=== PATIENT | female | born 1960 | race Hispanic/Latino ===

== ENCOUNTER 2018-04-18 00:46 | Inpatient (IN) | payer MEDICAID ==
--- NOTE | 2018-04-18 01:10 | C.PDOC ---
History Of Present Illness patient was medically cleared at [facility] and accepted in transfer to our psychiatric facility by dr Juarez Time Seen by Provider: 04/18/18 01:10 Chief Complaint (Nursing): Psychiatric Evaluation History Per: Patient History/Exam Limitations: no limitations Onset/Duration Of Symptoms: Days Current Symptoms Are (Timing): Still Present Suicide/Self Injury Attempted (Context): None Modifying Factor(s): Alcohol Severity: Mild Pain Scale Rating Of: 2 Associated Symptoms: Depression Involuntary Hold By: None Recent travel outside of the [place]: No Additional History Per: Other (hospital) Past Medical History Reviewed: Historical Data, Nursing Documentation, Vital Signs Vital Signs: Last Vital Signs Temp 97 F L 04/18/18 00:58 Pulse 61 04/18/18 00:58 Resp 16 04/18/18 00:58 BP 155/93 H 04/18/18 00:58 Pulse Ox 98 04/18/18 01:10 - Medical History PMH: COPD, Emphysema Surgical History: Cholecystectomy Family History: States: No Known Family Hx - Social History Hx Alcohol Use: Yes Hx Substance Use: No - Immunization History Hx Tetanus Toxoid Vaccination: Yes Hx Influenza Vaccination: Yes Hx Pneumococcal Vaccination: Yes Review Of Systems Constitutional: Negative for: Fever, Chills Cardiovascular: Negative for: Chest Pain Respiratory: Negative for: Shortness of Breath Gastrointestinal: Negative for: Abdominal Pain Musculoskeletal: Negative for: Back Pain Skin: Negative for: Rash Neurological: Negative for: Weakness Psych: Positive for: Depression. Negative for: Suicidal ideation Physical Exam - Physical Exam Appears: Non-toxic, No Acute Distress Skin: Warm, Dry Chest: Symmetrical Cardiovascular: Rhythm Regular Respiratory: No Rales, No Rhonchi, No Wheezing Gastrointestinal/Abdominal: Soft, No Tenderness Extremity: Normal ROM Extremity: Bilateral: Atraumatic Neurological/Psych: Oriented x3 Gait: Steady ED Course And Treatment O2 Sat by Pulse Oximetry: 98 Pulse Ox Interpretation: Normal Disposition Counseled Patient/Family Regarding: Studies Performed, Diagnosis - Disposition Disposition: HOSPITALIZED Disposition Time: 01:10 Condition: FAIR Forms: [facility] ([place]) - POA Present On Arrival: None - Clinical Impression Clinical Impression: Major depressive disorder, recurrent, unspecified, Alcohol abuse Decision To Admit - Pt Status Changed To: Hospital Disposition Of: Inpatient - Admit Certification Admit to Inpatient:: After my assessment, the patient will require hospitalization for at least two midnights. This is because of the severity of symptoms shown, intensity of services needed, and/or the medical risk in this patient being treated as an outpatient. - InPatient: Physician Admission Certification: I certify that this patient requires 2 or more midnights of care for the following reason:: After my assessment, the patient will require hospitalization for at least two midnights. This is because of the severity of symptoms shown, intensity of services needed, and/or the medical risk in this patient being treated as an outpatient. - . Bed Request Type: Psychiatry Admitting Physician: Mikey Juarez Patient Diagnosis: Major depressive disorder, recurrent, unspecified, Alcohol abuse
--- NOTE | 2018-04-18 01:45 | PCM.BM ---
Treatment Plan Problems - Problems identified on initial assessmt Depression Date Initiated: 04/18/18 Time Initiated: 01:42 Date resolved: 04/18/18 Assessment reference: NA substace abuse Date Initiated: 04/18/18 Time Initiated: :46 Date resolved: 04/18/18 Assessment reference: NA Status: Active Treatment assets and liabiliti Patient Assests: cooperative Patient Liabilities: substance abuse, medical problems (COPD, ) - Milieu Protocol Maintain good personal hygiene: daily Encourage regular showers, daily Assist patient to perform ADL's, every shift Remind patient to perform daily oral care Maintain personal safety: every shift Educate patient to report safety concerns to staff, every shift Monitor environment for contraband/sharps Medication safety: Monitor for expected outcome, potential side effects: every shift, Assess barriers to learning: every shift, Assess readiness for medication education: every shift
[2018-04-18 01:51] VITALS: O2SAT 97
--- NOTE | 2018-04-18 10:55 | PCM.PSYCH ---
Initial Psychiatric Evaluation - Initial Psychiatric Evaluation Type of Admission: Voluntary Legal Status: Capacity Chief Complaint (in patient's own words): "I dont want to drink alcohol again" History of Present Illness and Precipitating Events: Pt is a 57 y/o F who is currently living in her car with her boyfriend. pt has 3 children whom she has no contact with. pt is and currently on medical leave from [facility]. Pt presents due to alcohol intoxication, depression and suicidal ideation. Pt states that she drank alcohol yesterday and "blacked out" and woke up in the hospital. pt was outside the liquor store when this occurred. pt states she drank vodka but does not remember how much she drank. pt has been sober for 10 years after going to rehab and relapsed 3-4 month ago because of "personal problems". pt was sleeping in the room and irritated with questioning. Pt confirms depressed mood with anhedonia, "hard to sleep", anxiety and states "dont feel anything". Denies suicidal ideation/homicidal ideation. Pt denies racing thoughts, agitation, mood swings Pt denies auditory hallucinations, visual hallucinations, paranoia Pt has a hx of smoking cigarettes but quit due to dx of COPD emphysema. pt denies any other substance use such as cocaine, heroine, methamphetamines. Psych Hx: Pt was diagnosed bipolar 10 years ago due to "mood going up and down" . pt has not seen a psychiatrist since then. pt has hx of suicidal ideation 15 years ago which she was hospitalized for. Family psych Hx: Unremarkable Medical Hx: COPD, Emphysema Legal Hx: unremarkable Pt does not want to do rehab programs. She wishes to detox in the hospital. Current Medications: Active Medications Generic Name Dose Route Start Last Admin Trade Name Freq PRN Reason Stop Dose Admin Hydroxyzine HCl 25 mg 04/18/18 02:21 04/18/18 02:36 Atarax PO 25 mg Q6H PRN Administration Anxiety Pneumococcal Polyvalent Vaccine 0.5 ml 04/19/18 10:00 Pneumovax 23 Vaccine IM 04/19/18 10:01 .ONCE ONE Past Psychiatric History - Past Psychiatric History Previous Treatment History: Inpatient Pertinent Medical Hx (Current Medical&Sleep Prob, Allergies): Allergies Allergy/AdvReac Type Severity Reaction Status Date / Time acetaminophen [From Vicodin] Allergy Verified 04/18/18 01:17 codeine Allergy Verified 04/18/18 01:17 hydrocodone [From Vicodin] Allergy Verified 04/18/18 01:17 Penicillins Allergy Verified 04/18/18 01:17 shellfish derived Allergy Verified 04/18/18 01:17 Albuterol HFA [Ventolin HFA 90 mcg/actuation (8 g)] 1 puff IH Q4 PRN 04/18/18 Cyclobenzaprine [Cyclobenzaprine HCl] 10 mg PO Q8 04/18/18 Levofloxacin [Levaquin] 750 mg PO DAILY 04/18/18 Tiotropium [place] Inhaler [Spiriva Inhalation Handihaler Device] 113 mcg INH Q4 PRN 04/18/18 predniSONE [Prednisone] 10 mg PO TID 04/18/18 Review of Systems - Review of Systems All systems: reviewed and no additional remarkable complaints except - Psychiatric Psychiatric: Abnormal Sleep Pattern, Anxiety, Depression, Suicidal Ideation. absent: Auditory Hallucinations, Hallucinations, Homicidal Ideation, Hopelessness, Paranoia, Visual Hallucinations Mental Status Examination - Personal Presentation Personal Presentation: Looks stated age - Affect Affect: Constricted, Depressed - Motor Activity Motor Activity: Calm - Reliability in Providing Information Reliability in Providing Information: Fair - Speech Speech: Organized - Mood Mood: Depressed, Anxious - Formal Thought Process Formal Thought Process: No Impairment - Obsessions/Compulsions Obsessions: No Compulsions: No - Cognitive Functions Orientation: Person, Place, Situation, Time Sensorium: Alert Attention/Concentration: Attentive Abstract Thinking: [place] Estimate of Intelligence: Below average Judgement: Imparied, as evidence by: Poor judgement, Imparied, as evidence by: Lack of insight into illness - Risk Risk: Suicidal, Diminished functioning - Limitations Limitations: Living alone DSM 5 DX - DSM 5 DSM 5 Diagnosis: Major Depressive Disorder, recurrent severe without Psychosis EtOH withdrawal EtOH abuse disorder, Severe - Recommended/Plan of Treatment Treatment Recommendations and Plan of Treatment: Major Depressive Disorder, recurrent severe without Psychosis EtOH withdrawal EtOH abuse disorder, Severe Start Atarax 25mg for anxiety Trazodone for sleep Remeron for depression Librium 25mg EtOH detox As need medications All risks, benefits and alternatives of the meds discussed, and the pt agreed and understood. Attend groups and activities Individual therapy daily Psychoeducation and support daily Encourage compliance with meds and after care Refer to outpatient program Teach healthy lifestyle methods, i.e. diet, exercise, meditation
[2018-04-18] MEDS ORDERED: Albuterol 0.083% Inhal Sol (2.5 mg/3 mL) UD INH PRN (16:04)
[2018-04-18] MEDS ORDERED: Albuterol HFA 90 mcg/actuation (8 g) INH PRN (16:33)
[2018-04-18] MEDS: Tiotropium 18 mcg Cap For Inhalation INH SCH (17:00)
[2018-04-19] MEDS: Tiotropium 18 mcg Cap For Inhalation INH SCH (08:20)
[2018-04-19] MEDS ORDERED: Pneumococcal 23-Valent Vaccine IM ONE (10:00)
--- NOTE | 2018-04-19 14:57 | PCM.PYCHPN ---
Psychiatric Progress Note - Psychiatric Progress Note Patient seen today, length of contact: 16 min Patient Chief Complaint: "I dont want to drink alcohol again" Medication Change: Yes Medical Record Reviewed: Yes Mental Status Examination - Cognitive Function Orientation: Person, Place, Situation, Time Memory: Intact Attention: WNL Concentration: Poor Association: WNL Fund of Knowledge: Poor - Mood Mood: Depressed, Anxious - Affect Affect: Constricted, Depressed - Speech Speech: Soft - Formal Thought Process Formal Thought Process: No Impairment - Suicidal Ideation Suicidal Ideation: No - Homicidal Ideation Homicidal Ideation: No Goal/Treatment Plan - Goal/Treatment Plan Need for Continued Stay: Severe depression anxiety, Severe functional impairment Progress Toward Problem(s) and Goals/Treatment Plan: Major Depressive Disorder, recurrent severe without Psychosis EtOH withdrawal EtOH abuse disorder, Severe Start Atarax 25mg for anxiety Trazodone for sleep Remeron for depression Librium 25mg EtOH detox As need medications All risks, benefits and alternatives of the meds discussed, and the pt agreed and understood. Attend groups and activities Individual therapy daily Psychoeducation and support daily Encourage compliance with meds and after care Refer to outpatient program Teach healthy lifestyle methods, i.e. diet, exercise, meditation
[2018-04-20] MEDS: Tiotropium 18 mcg Cap For Inhalation INH SCH (08:05)
[2018-04-20] MEDS: Multiple Vitamins Tab PO SCH (09:21)
[2018-04-21] MEDS: Tiotropium 18 mcg Cap For Inhalation INH SCH (08:13)
[2018-04-21] MEDS: Multiple Vitamins Tab PO SCH (09:54)
--- NOTE | 2018-04-21 14:38 | PCM.BM ---
<Margarita Meraz - Last Filed: 04/21/18 14:38> Treatment Plan Problems - Problems identified on initial assessmt Depression Date Initiated: 04/18/18 Time Initiated: 01:42 Date resolved: 04/18/18 Assessment reference: NA substace abuse Date Initiated: 04/18/18 Time Initiated: 01:46 Date resolved: 04/18/18 Assessment reference: NA Status: Active Treatment assets and liabiliti Patient Assests: cooperative Patient Liabilities: live alone, substance abuse, medical problems (COPD, ) - Milieu Protocol Maintain good personal hygiene: daily Encourage regular showers, daily Assist patient to perform ADL's, every shift Remind patient to perform daily oral care Conduct patient checks and document Observation sheet: Q15 minutes (Safety) Maintain personal safety: every shift Educate patient to report safety concerns to staff, every shift Monitor environment for contraband/sharps Medication safety: Monitor for expected outcome, potential side effects: every shift, Assess barriers to learning: every shift, Assess readiness for medication education: every shift Milieu Narrative: Major Depressive Disorder, recurrent severe without Psychosis EtOH withdrawal EtOH abuse disorder, Severe Start Atarax 25mg for anxiety Trazodone for sleep Remeron for depression Librium 25mg EtOH detox As need medications All risks, benefits and alternatives of the meds discussed, and the pt agreed and understood. Attend groups and activities Individual therapy daily Psychoeducation and support daily Encourage compliance with meds and after care Refer to outpatient program Teach healthy lifestyle methods, i.e. diet, exercise, meditation Discharge/Continuing Care - Treatment Team Participation Patient/Family/SO Statement: Major Depressive Disorder, recurrent severe without Psychosis EtOH withdrawal EtOH abuse disorder, Severe Start Atarax 25mg for anxiety Trazodone for sleep Remeron for depression Librium 25mg EtOH detox As need medications All risks, benefits and alternatives of the meds discussed, and the pt agreed and understood. Attend groups and activities Individual therapy daily Psychoeducation and support daily Encourage compliance with meds and after care Refer to outpatient program Teach healthy lifestyle methods, i.e. diet, exercise, meditation <Melody Serrato - Last Filed: 04/21/18 15:03> Family Contact Family involvement: Patient does not wish Family/SO involvement Family contact: Patient declines to allow family contact at present - Goals for Treatment Patient goals for treatment: "I want to go to [facility] outpatient program." Discharge/Continuing Care - Education Needs Education Needs: Patient Medication, Patient Diagnosis/Disease Process, Patient Placement options, Patient Community resources - Discharge Discharge Criteria: Free of Suicidal thoughts, Normal sleep pattern, Ability to care for self, No longer exhibiting s/s of withdrawal, Reduction of target symptoms Discharge to:: Home - Treatment Team Participation Discussed with Family/SO: No Was Patient/Family/SO present at Treatment Team Meeting: Yes <Mikey Juarez - Last Filed: 04/25/18 12:39> - Diagnosis (1) Major depressive disorder, recurrent, unspecified Status: Acute Interventions: 04/25/18 12:39 * Assess/adjust medications daily and /or as needed * See patient on an individual basis 7x/week to assess symptoms of depression * Monitor for side effects & effectiveness of medications * (2) Alcohol abuse Status: Acute Interventions: 04/25/18 12:39 * Assess 7x/week regarding severity of withdrawal * Educate regarding risks, benefits, side effects and alternatives of medications * Use Motivational Interviewing for abstinence * Use CBT for relapse prevention * Medication management for withdrawal symptoms * Encourage medication assisted treatment *
[2018-04-22] MEDS: Tiotropium 18 mcg Cap For Inhalation INH SCH (08:03)
[2018-04-22] MEDS: Multiple Vitamins Tab PO SCH (09:44)
[2018-04-23] MEDS: Tiotropium 18 mcg Cap For Inhalation INH SCH (08:26)
[2018-04-23] MEDS: Multiple Vitamins Tab PO SCH (09:40)
[2018-04-24] MEDS: Tiotropium 18 mcg Cap For Inhalation INH SCH (08:52)
[2018-04-24] MEDS: Multiple Vitamins Tab PO SCH (09:52)
[2018-04-25 06:45] VITALS: RESP 20; TEMP 98.7
[2018-04-25] MEDS: Tiotropium 18 mcg Cap For Inhalation INH SCH (08:29)
[2018-04-25 09:21] VITALS: BP 108/77; PULSE 98
[2018-04-25] MEDS: Multiple Vitamins Tab PO SCH (09:48)
--- NOTE | 2018-04-25 10:02 | PCM.PYCHPN ---
Psychiatric Progress Note - Psychiatric Progress Note Patient seen today, length of contact: 16 min Patient Chief Complaint: "I dont want to drink alcohol again" Medication Change: Yes Medical Record Reviewed: Yes Mental Status Examination - Cognitive Function Orientation: Person, Place, Situation, Time Memory: Intact Attention: WNL Concentration: WNL Association: WNL Fund of Knowledge: [facility] Decription of patient's judgement and insights: good, fair - Mood Mood: Neutral - Affect Affect: Constricted - Speech Speech: Soft - Formal Thought Process Formal Thought Process: No Impairment Psychotic Thoughts and Behaviors: denies any AVH - Suicidal Ideation Suicidal Ideation: No - Homicidal Ideation Homicidal Ideation: No Goal/Treatment Plan - Goal/Treatment Plan Need for Continued Stay: Severe depression anxiety, Severe functional impairment Progress Toward Problem(s) and Goals/Treatment Plan: Major Depressive Disorder, recurrent severe without Psychosis EtOH withdrawal EtOH abuse disorder, Severe
--- NOTE | 2018-04-25 10:02 | PCM.PYCHDC ---
Mental Status Examination - Mental Status Examination Orientation: Person, Place, Situation, Time Memory: Intact Mood: Neutral Affect: Constricted Speech: Soft Attention: WNL Concentration: WNL Association: WNL Fund of Knowledge: WNL Formal Thought Process: No Impairment Description of patient's judgement and insight: good, fair Psychotic Thoughts and Behaviors: denies any AVH Suicidal Ideation: No Current Homicidal Ideation?: No Discharge Summary - Discharge Note Reason for Hospitalization: Pt is a 57 y/o F who is currently living in her car with her boyfriend. pt has 3 children whom she has no contact with. pt is and currently on medical leave from [facility]. Pt presents due to alcohol intoxication, depression and suicidal ideation. Pt states that she drank alcohol yesterday and "blacked out" and woke up in the hospital. pt was outside the liquor store when this occurred. pt states she drank vodka but does not remember how much she drank. pt has been sober for 10 years after going to rehab and relapsed 3-4 month ago because of "personal problems". pt was sleeping in the room and irritated with questioning. Pt confirms depressed mood with anhedonia, "hard to sleep", anxiety and states "dont feel anything". Denies suicidal ideation/homicidal ideation. Pt denies racing thoughts, agitation, mood swings Pt denies auditory hallucinations, visual hallucinations, paranoia Pt has a hx of smoking cigarettes but quit due to dx of COPD emphysema. pt denies any other substance use such as cocaine, heroine, methamphetamines. Psych Hx: Pt was diagnosed bipolar 10 years ago due to "mood going up and down" . pt has not seen a psychiatrist since then. pt has hx of suicidal ideation 15 years ago which she was hospitalized for. Family psych Hx: Unremarkable Medical Hx: COPD, Emphysema Legal Hx: unremarkable Pt does not want to do rehab programs. She wishes to detox in the hospital. Consultations:: List each consultation separately and include: 1. Reason for request. 2. Findings. 3. Follow-up Summary of Hospital Course include:: 1. Description of specific treatment plan utilized for patients during their course of treatmen. 2. Summarize the time- course for resolution of acute symptoms and/or regressed behaviors. 3. Describe issues identified and worked on during hospitalization. 4. Describe medication utilized. 5. Describe medical problems identified and treated. 6. Reassessment of suicide risk Summary of Hospital Course: Pt is a 57 y/o F who is currently living in her car with her boyfriend. pt has 3 children whom she has no contact with. pt is and currently on medical leave from [facility]. Pt presents due to alcohol intoxication, depression and suicidal ideation. Pt states that she drank alcohol yesterday and "blacked out" and woke up in the hospital. pt was outside the liquor store when this occurred. pt states she drank vodka but does not remember how much she drank. pt has been sober for 10 years after going to rehab and relapsed 3-4 month ago because of "personal problems". pt was sleeping in the room and irritated with questioning. Pt confirms depressed mood with anhedonia, "hard to sleep", anxiety and states "dont feel anything". Denies suicidal ideation/homicidal ideation. Pt denies racing thoughts, agitation, mood swings Pt denies auditory hallucinations, visual hallucinations, paranoia Pt has a hx of smoking cigarettes but quit due to dx of COPD emphysema. pt denies any other substance use such as cocaine, heroine, methamphetamines. Psych Hx: Pt was diagnosed bipolar 10 years ago due to "mood going up and down" . pt has not seen a psychiatrist since then. pt has hx of suicidal ideation 15 years ago which she was hospitalized for. Family psych Hx: Unremarkable Medical Hx: COPD, Emphysema Legal Hx: unremarkable Pt does not want to do rehab programs. She wishes to detox in the hospital. - Final Diagnosis (DSM 5) Condition upon Discharge: FAIR DSM 5: Major Depressive Disorder, recurrent severe without Psychosis EtOH withdrawal EtOH abuse disorder, Severe Disposition: HOME/ ROUTINE Follow-up Treatment Plan: Major Depressive Disorder, recurrent severe without Psychosis EtOH withdrawal EtOH abuse disorder, Severe Prescriptions/Medication Reconciliation: Albuterol HFA [Ventolin HFA 90 mcg/actuation (8 g)] 1 puff INH RQ6 PRN #1 inhaler PRN Reason: Shortness Of Breath Gabapentin [Neurontin] 300 mg PO BID #60 cap Mirtazapine [Remeron] 30 mg PO HS #30 tab traZODone [Desyrel] 100 mg PO HS #30 tab - Smoking Cessation Smoking Cessation Medication prescribed: No - Antipsychotic Medications Pt discharged on 2 or more routine antipsychotic medications: No
--- NOTE | 2018-04-25 10:02 | PCM.PYCHPN ---
Psychiatric Progress Note - Psychiatric Progress Note Patient seen today, length of contact: 16 min Patient Chief Complaint: "I dont want to drink alcohol again" Medication Change: Yes Medical Record Reviewed: Yes Mental Status Examination - Cognitive Function Orientation: Person, Place, Situation, Time Memory: Intact Attention: WNL Concentration: WNL Association: WNL Fund of Knowledge: [facility] Decription of patient's judgement and insights: good, fair - Mood Mood: Neutral - Affect Affect: Constricted - Speech Speech: Soft - Formal Thought Process Formal Thought Process: No Impairment Psychotic Thoughts and Behaviors: denies any AVH - Suicidal Ideation Suicidal Ideation: No - Homicidal Ideation Homicidal Ideation: No Goal/Treatment Plan - Goal/Treatment Plan Need for Continued Stay: Severe depression anxiety, Severe functional impairment Progress Toward Problem(s) and Goals/Treatment Plan: Major Depressive Disorder, recurrent severe without Psychosis EtOH withdrawal EtOH abuse disorder, Severe
== END 2018-04-25 13:15 | disposition home or self-care (01) | DRG 430 ==
LOC: C.ER 00:46 → MERGE 01:19 → C.5E 01:19
PROVIDERS: ADMIT Psychiatry & Neurology Psychiatry; ATTEND Psychiatry & Neurology Psychiatry
DX: F33.2 Major depressive disorder, recurrent severe without psychotic features (principal); J43.9 Emphysema, unspecified; F41.9 Anxiety disorder, unspecified; R45.851 Suicidal ideations; Z87.891 Personal history of nicotine dependence; F10.120 Alcohol abuse with intoxication, uncomplicated; Y90.9 Presence of alcohol in blood, level not specified